=== PATIENT | female | born 2000 | race Caucasian/White ===

== ENCOUNTER 2020-08-27 10:47 | Outpatient (REF) | payer OTHER, SELFPAY ==
[2020-08-27 11:07] LABS: COVID-19 Test Negative (Negative)
== END 2020-08-27 10:48 | disposition home or self-care (01) ==
LOC: HO.LAB 10:47
PROVIDERS: Visit Provider Internal Medicine
DX: Z20.828 Contact with and (suspected) exposure to other viral communicable diseases (principal)
CPT/HCPCS: 87635; C9803

== ENCOUNTER → 2022-08-10 09:16 | Outpatient (RCR) | payer OTHER, SELFPAY ==
[2020-09-02 06:58] LABS: COVID-19 Test Negative (Negative)
[2020-09-10 10:02] LABS: COVID-19 Test Negative (Negative); IDNOW Serial# 55D5AD1C
[2020-09-15 15:19] LABS: COVID-19 Test Negative (Negative)
[2020-10-10 14:00] LABS: SARS-COV-2 PCR UMBRL NOT DETECTED
[2020-10-19 09:50] LABS: SARS-COV-2 PCR UMBRL Not Detected
[2020-10-22 10:32] LABS: SARS-COV-2 PCR UMBRL Not Detected
[2020-11-04 09:52] LABS: SARS-COV-2 PCR UMBRL NOT DETECTED
[2020-11-10 15:21] LABS: SARS-COV-2 PCR UMBRL NEGATIVE
== END | disposition home or self-care (01) ==
LOC: HO.EMPCOV 09-02 06:33
PROVIDERS: Visit Provider Internal Medicine
DX: Z20.828 Contact with and (suspected) exposure to other viral communicable diseases (principal)
CPT/HCPCS: 36415; 87635; C9803; U0003